=== PATIENT | male | born 1995 | race Caucasian/White ===

== ENCOUNTER 2020-12-19 18:52 | Emergency (ER) | payer OTHER ==
--- NOTE | 2020-12-19 19:03 | EDM.PDOC ---
ED HPI GENERAL MEDICAL PROBLEM - General Chief Complaint: General Stated Complaint: ALLERGIC REACTION Time Seen by Provider: 12/19/20 19:00 Source of Information: Reports: Patient History Limitations: Reports: No Limitations - History of Present Illness INITIAL COMMENTS - FREE TEXT/NARRATIVE: patient with a h/o allergy to nuts who presented to the ER due a possible allergic reaction. He mistakenly had some food that was cooked with cashew. Reports feeling nauseas but no SOB or tightness in the throat. no facial swelling. This occurred 40 min ago, he took Benadryl one tab [employer]. Onset: Today Duration: Minutes: (40) Location: Reports: Abdomen - Related Data Allergies Allergy/AdvReac Type Severity Reaction Status Date / Time Sulfa (Sulfonamide Allergy Rash Verified 12/19/20 19:04 Antibiotics) tree nut Allergy Anaphylactic Verified 12/19/20 19:05 Shock Past Medical History Cardiovascular History: Reports: None Respiratory History: Reports: None ED ROS GENERAL - Review of Systems Review Of Systems: See Below Constitutional: Reports: No Symptoms HEENT: Reports: No Symptoms Respiratory: Reports: No Symptoms Cardiovascular: Reports: No Symptoms Endocrine: Reports: No Symptoms : Reports: No Symptoms Musculoskeletal: Reports: No Symptoms Skin: Reports: No Symptoms Neurological: Reports: No Symptoms ED EXAM, GENERAL - Physical Exam Exam: See Below Exam Limited By: No Limitations General Appearance: Alert, WD/WN, No Apparent Distress, Anxious Throat/Mouth: Normal Inspection, Normal Oropharynx, No Airway Compromise Respiratory/Chest: No Respiratory Distress Cardiovascular: Normal Peripheral Pulses GI/Abdominal: Normal Bowel Sounds, Soft Neurological: Alert, Oriented, No Motor/Sensory Deficits Course - Vital Signs Last Recorded V/S: Last Vital Signs Temp 36.6 C 12/19/20 19:49 Pulse 71 12/19/20 19:49 Resp 18 12/19/20 19:49 BP 122/90 12/19/20 19:49 Pulse Ox 98 12/19/20 19:49 - Orders/Labs/Meds Meds: Medications Discontinued Medications Generic Name Dose Route Start Last Admin Trade Name Freq PRN Reason Stop Dose Admin Diphenhydramine HCl 50 mg 12/19/20 19:04 12/19/20 19:07 Benadryl PO 12/19/20 19:05 50 mg ONETIME ONE Administration Methylprednisolone Sodium Succinate 125 mg 12/19/20 19:03 12/19/20 19:07 Solu-Medrol IM 12/19/20 19:04 125 mg ONETIME ONE Administration Ondansetron HCl 4 mg 12/19/20 19:09 12/19/20 19:10 Zofran Odt PO 12/19/20 19:10 4 mg ONETIME ONE Administration Ranitidine HCl 150 mg 12/19/20 19:09 Zantac PO 12/19/20 19:10 NOW STA - Re-Assessments/Exams Free Text/Narrative Re-Assessment/Exam: 12/19/20 19:14 upon arrival was connected to the monitor. Normal VS. IM solumderol PO Benadryl 12/19/20 19:57 Patient reports feeling much better. Tolerated PO intake without problems. Will d/c home on medrol dose promise and benadryl Departure - Departure Time of Disposition: 20:01 Disposition: Home, Self-Care 01 Condition: Good Clinical Impression: Allergy to nuts, Allergy to cashew nut - Discharge Information *PRESCRIPTION DRUG MONITORING PROGRAM REVIEWED*: Not Applicable *COPY OF PRESCRIPTION DRUG MONITORING REPORT IN PATIENT CELINA: Not Applicable Forms: ED Department Discharge Additional Instructions: - take the prescribed cortisone as per instructions. - take Benadryl one tab as needed if any concerns. - return to the ER if any concerns Sepsis Event Note (ED) - Focused Exam Vital Signs: Vital Signs Temp Pulse Resp BP Pulse Ox 12/19/20 19:49 36.6 C 71 18 122/90 98 12/19/20 19:00 36.1 C 84 16 129/93 H 98 - Problem List & Annotations (1) Allergy to nuts SNOMED Code(s): 86743785 Code(s): Z91.018 - ALLERGY TO OTHER FOODS Status: Acute Priority: Low (2) Allergy to cashew nut SNOMED Code(s): 346888398 Code(s): Z91.018 - ALLERGY TO OTHER FOODS Status: Acute Priority: Low - Problem List Review Problem List Initiated/Reviewed/Updated: Yes - Assessment/Plan Plan: - take the prescribed cortisone as per instructions. - take Benadryl one tab as needed if any concerns. - return to the ER if any concerns
[2020-12-19] MEDS: methylPREDNISolone Sodium Succinate 125 MG/2 ML SDV IM ONE (19:07)
[2020-12-19] MEDS: diphenhydrAMINE 50 MG Cap PO ONE (19:07)
[2020-12-19] MEDS: Ondansetron 4 MG Tab.DIS PO ONE (19:10)
== END 2020-12-19 20:17 | disposition home or self-care (01) ==
LOC: LB.ED 18:52
DX: T78.1XXA Other adverse food reactions, not elsewhere classified, initial encounter (principal); Z88.2 Allergy status to sulfonamides
CPT/HCPCS: 96372; 99282; 99283; A9270-GY; J2930